=== PATIENT | female | born 1980 | race Caucasian/White ===

== ENCOUNTER 2018-02-16 04:01 | Emergency (ER) | payer SELFPAY ==
[~2018-02-16] VITALS: Ht 162.6 cm; Wt 108.9 kg
[2018-02-16 04:05] VITALS: BP 143/96
== END 2018-02-16 04:30 | disposition home or self-care (01) ==
LOC: ER 04:08
DX: M75.92 Shoulder lesion, unspecified, left shoulder (principal); I10 Essential (primary) hypertension
CPT/HCPCS: 99282; A4606; Z7610